=== PATIENT | female | born 1995 ===

== ENCOUNTER 2019-05-18 20:05 | Inpatient (IN) | payer MEDICAID, OTHER ==
[2019-05-18] MEDS ORDERED: ePHEDrine SULFATE 50 MG/1 ML INJ IV PRN (20:39)
[2019-05-18] MEDS ORDERED: DINOPROSTONE 10 MG VAG SUPP VG ONE (20:39)
[2019-05-18] MEDS ORDERED: ONDANSETRON 4 MG/2 ML INJ IV PRN (20:39)
[2019-05-18] MEDS ORDERED: TERBUTALINE 1 MG/1 ML INJ IVP PRN (20:39)
[2019-05-18] MEDS ORDERED: LIDOCAINE (2%) 20 MG/1 ML VIAL 20 ML MDV INFILTRATI ONE (20:39)
[2019-05-18] MEDS ORDERED: NALOXONE 0.4 MG/1 ML INJ IV PRN (20:39)
[2019-05-18] MEDS ORDERED: MINERAL OIL 30 ML ORAL LIQD PO PRN (20:39)
[2019-05-18] MEDS ORDERED: AMPICILLIN/NS 2 GM/100 ML 2 GM/100 ML BAG IV ONE (20:39)
[2019-05-18] MEDS ORDERED: TERBUTALINE 1 MG/1 ML INJ SUB-Q PRN (20:39)
[2019-05-18] MEDS ORDERED: LACTATED RINGERS 1,000 ML IV SCH (21:00)
[2019-05-18] MEDS ORDERED: OXYTOCIN 20 UNIT/1000ML DRIP 20 UNITS/1,000 ML BAG IV SCH (21:00)
[2019-05-18 21:59] LABS: Hematocrit 37.4 % (30.3-42.9); Hemoglobin 12.6 gm/dl (10.1-14.3); Mean Corpuscular HGB Conc 34 % (30-34); Mean Corpuscular Volume 91 fl (79-97); Platelet Count 236 K/mm3 (140-440); Red Blood Count 4.09 M/mm3 (3.65-5.03); Red Cell Distribution Width 14.7 % (13.2-15.2)
--- NOTE | 2019-05-19 | Ultrasound Report ---
ULTRASOUND OBSTETRIC ULTRASOUND BIOPHYSICAL PROFILE INDICATION / CLINICAL INFORMATION: well being. Clinical gestational age of 38 weeks, 2 days. COMPARISON: None available. FINDINGS: BREATHING MOVEMENT = 2 GROSS BODY MOVEMENT = 2 TONE = 2 QUALITATIVE AMNIOTIC FLUID VOLUME = 2 TOTAL BIOPHYSICAL SCORE = 8/8 Biparietal Diameter = 8.4 cm = 34 weeks, 0 day(s). Head Circumference = 30.7 cm = 34 weeks, 1 day(s). Abdominal Circumference = 33.5 cm = 37 weeks, 3 day(s). Femur Length = 6.5 cm = 33 weeks, 2 day(s). Average Ultrasound Age (AUA) = 34 weeks, 5 day(s). Heart Rate: 156 beats per minute. Estimated Weight in grams (if calculated): 2734 Position: cephalic. Cervix: closed. Length in cm (if measured): 4.5 Placenta: maternal left/fundal and free of the os. Amniotic Fluid Volume: normal Amniotic Fluid Index (MACK) in cm (if calculated): 9.4. Maternal Adnexa: No significant abnormality. IMPRESSION: 1. Biophysical Score = 8/8 2. Estimated gestational age of 34 weeks, 5 days by measurements. 3. No acute sonographic abnormality. Signer Name: John Lyon MD Signed: 05/18/2019 11:55 PM Workstation Name: [email or web address]
[2019-05-19] MEDS ORDERED: OXYTOCIN DRIP 30,000 MILLIUNITS/500 ML BAG IV ONE (09:25)
--- NOTE | 2019-05-19 10:30 | History and Physical Report ---
History of Present Illness Date of examination: 05/19/19 Date of admission: 05/18/19 20:05 Chief complaint: Presents for a scheduled induction of labor due to IUGR History of present illness: Late entry to care at 16 weeks at [facility], course complicated by Hyperemsis and weight loss; IUGR @ 38 weeks; Co-managed with [facility]; in the 9%. [facility] recommends induction of labor. Past History Past Medical History: no pertinent history Past Surgical History: no surgical history Family/Genetic History: none Social history: no significant social history, single - Obstetrical History Expected Date of Delivery: 05/30/19 Actual Gestation: 38 Week(s) 3 Day(s) : 2 Para: 1 Hx # Term Pregnancies: 1 Number of Living Children: 1 #1 Infant Gender: Female year: 2[age][birth year] Birthweight: 2.268 kg Method of Delivery: Vaginal Gestational age at delivery: 40 Complications: none Medications and Allergies Allergies Allergy/AdvReac Type Severity Reaction Status Date / Time No Known Allergies Allergy Verified 05/18/19 20:48 Home Medications Medication Instructions Recorded Confirmed Last Taken Type Iron 1 tab PO DAILY 05/18/19 05/18/19 Unknown History Vitamin 1 tab PO DAILY 05/18/19 05/18/19 Unknown History Active Meds: Active Medications Butorphanol Tartrate (Stadol) 2 mg IV Q2H PRN PRN Reason: Pain , Severe (7-10) Ephedrine Sulfate (Ephedrine Sulfate) 10 mg IV Q2M PRN PRN Reason: Hypotension Oxytocin/Sodium Chloride (Pitocin/Ns 20 Unit/1000ml Drip) 20 units in 1,000 mls @ 125 mls/hr IV DIRECT SHIRA Lactated Ringer's (Lactated Ringers) 1,000 mls @ 125 mls/hr IV DIRECT SHIRA Last Admin: 05/19/19 09:31 Dose: 125 mls/hr Documented by: Ampicillin Sodium (Ampicillin/Ns 1 Gm/50 Ml) 1 gm in 50 mls @ 100 mls/hr IV Q4HR SHIRA; Protocol Mineral Oil (Mineral Oil) 30 ml PO QHS PRN PRN Reason: Constipation Naloxone HCl (Naloxone) 0.1 mg IV Q2MIN PRN PRN Reason: Res Rate </= 8 or 02 SAT < 92% Ondansetron HCl (Zofran) 4 mg IV Q8H PRN PRN Reason: Nausea And Vomiting Terbutaline Sulfate (Brethine) 0.25 mg SUB-Q ONCE PRN PRN Reason: Hyperstimulation/Hypertonicity Terbutaline Sulfate (Brethine) 0.25 mg IVP ONCE PRN PRN Reason: Hyperstimulation/Hypertonicity Review of Systems All systems: negative - Vital Signs Vital signs: Vital Signs Temp Resp 98.8 F 14 05/18/19 20:30 05/18/19 20:30 Temp Pulse Resp BP Pulse Ox 98.7 F 71 16 94/57 05/19/19 07:51 05/19/19 09:25 05/19/19 00:08 05/19/19 09:25 - Physical Exam Breasts: Positive: normal Cardiovascular: Regular rate Lungs: Positive: Clear to auscultation, Normal air movement Abdomen: Positive: normal appearance, soft, normal bowel sounds Genitourinary (Female): Positive: normal external genitalia, normal perenium Vagina: Positive: normal moisture Uterus: Positive: enlarged Anus/Rectum: Positive: normal perianal skin Extremities: Positive: normal - Obstetrical FHR: category 1 Uterine Contraction Monitor Mode: External Cervical Dilatation: 1 (Vtx, Intact) Cervical Effacement Percentage: 60 station: -2 Uterine Contraction Pattern: Irregular Uterine Tone Measurement Phase: Resting Uterine Contraction Intensity: Mild Results Result Diagrams: 05/18/19 20:45 All other labs normal. Assessment and Plan A: IUP @ 38 3/7 Weeks Category I Tracing IUGR GBS Positive P: Admit to L&D Per Routine Orders Cook's Cervical Ripening Balloon Placed Low-Dose Pitocin Induction GBS Prophylaxis
[2019-05-19] MEDS: AMPICILLIN/NS 1 GM/50 ML 1 GM/50 ML BAG IV SCH ×4 (10:36→22:41)
[2019-05-19] MEDS ORDERED: OXYTOCIN DRIP 30 UNITS/500 ML BAG IV SCH (11:00)
[2019-05-19] MEDS: BUTORPHANOL 2 MG/1 ML INJ IV PRN ×3 (11:58→21:14)
--- NOTE | 2019-05-19 20:46 | Progress Note ---
Assessment and Plan A: Term IUP 38w3d IUGR Category 1 tracing Cooks catheter removed; AROM 18:25 Lg amt clear fluid Pitocin 2mu Contractions 2-4min P: Routine labor orders Pitocin Augmentation May have IV pain med/epidural PRN Anticipate Subjective - Subjective Date of service: 05/19/19 (18:25) Principal diagnosis: Term IUP, IOL Interval history: See H&P Patient reports: movement normal, contractions Objective - Vital Signs Vital Signs: Vital Signs - 12hr 05/19/19 05/19/19 05/19/19 09:25 11:46 13:02 Temperature Pulse Rate 71 79 76 Respiratory Rate Blood Pressure 94/57 109/66 99/60 Blood Pressure [Left] 05/19/19 05/19/19 05/19/19 13:04 13:32 14:04 Temperature 97.5 F L Pulse Rate 76 73 82 Respiratory 14 Rate Blood Pressure 97/60 106/73 Blood Pressure 99/60 [Left] 05/19/19 05/19/19 05/19/19 14:34 15:02 15:34 Temperature Pulse Rate 84 77 87 Respiratory Rate Blood Pressure 85/53 112/70 111/75 Blood Pressure [Left] 05/19/19 05/19/19 05/19/19 16:04 16:34 17:02 Temperature Pulse Rate 82 73 96 H Respiratory Rate Blood Pressure 113/69 104/62 99/59 Blood Pressure [Left] 05/19/19 05/19/19 05/19/19 17:26 17:34 18:03 Temperature 98.7 F Pulse Rate 70 78 Respiratory 16 Rate Blood Pressure 99/57 116/68 Blood Pressure [Left] 05/19/19 05/19/19 05/19/19 18:32 19:03 19:33 Temperature Pulse Rate 83 68 76 Respiratory Rate Blood Pressure 101/73 100/68 98/62 Blood Pressure [Left] 05/19/19 05/19/19 20:02 20:33 Temperature Pulse Rate 66 82 Respiratory Rate Blood Pressure 103/67 138/73 Blood Pressure [Left] - Exam Breasts: normal Cardiovascular: Regular rate, Normal S1, Normal S2, No murmurs Lungs: Clear to auscultation, Normal air movement Abdomen: Present: normal appearance, soft, normal bowel sounds. Absent: distention Vulva: both: normal (Cooks catheter removed with gentle traction. ) Uterus: Present: other (Gravid) FHR: category 1 Uterine Contraction Monitor Mode: External Cervical Dilatation: 4 (18:25 AROM, Lg amt clear fluid) Cervical Effacement Percentage: 70 station: -2 Uterine Contraction Pattern: Regular Uterine Tone Measurement Phase: Resting Uterine Contraction Intensity: Moderate Extremities: normal Deep Tendon Reflex Grade: Normal +2 - Labs Labs: Laboratory Results - last 24 hr 05/18/19 05/18/19 20:45 20:45 WBC 9.2 RBC 4.09 Hgb 12.6 Hct 37.4 MCV 91 MCH 31 MCHC 34 RDW 14.7 Plt Count 236 Blood Type A POSITIVE Antibody Screen Negative
[2019-05-19] MEDS ORDERED: SODIUM CHLORIDE 0.9% 1000 ML 1,000 ML ONE (21:58)
--- NOTE | 2019-05-19 22:04 | Event Note ---
Date: 05/19/19 A: Category 2 tracing (Variables; early decels) SVE 80/-2 P: IUPC placed in gentle fashion [facility] Infusion
--- NOTE | 2019-05-19 23:09 | Procedure Note ---
OB Delivery Note - Delivery Date of Delivery: 05/19/19 (22:52) Surgeon: DYLAN SALDIVAR (PJ) Estimated blood loss: 100cc - Vaginal Delivery presentation: vertex Delivery position: OA Intrapartum events: none Delivery induction: cervidil Delivery augmentation: rupture of membranes, pitocin Delivery monitor: external FHT, external uterine, internal uterine Route of delivery: (22:52) Delivery placenta: spontaneous (22:55) Delivery cord: 3 umbilical vessels Episiotomy: none Delivery laceration: none Anesthesia: intravenous Delivery comments: Arrived to room following nurse delivery of viable female infant. Nurse drying and stimulating vigorous . Short cord noted. Cord clamped and to for assessment. Cord blood collected per hospital protocol. Spontaneous damon delivery of intact placenta at 22:55. FF@U-2. Bleeding small. No tears or lacerations noted. EBL 100cc. and mother left in stable condition in L&D. - A at 1 minute: 8 at 5 minutes: 9 Infant Gender: Female (2472 grams, 5lbs 7.1oz, 18")
[2019-05-19] MEDS ORDERED: WITCH HAZEL/ GLYCERIN PAD TP PRN (23:10)
[2019-05-19] MEDS ORDERED: LANOLIN/ZINC/DIMETHICONE (LANSINOH) 7 GM TP PRN (23:10)
[2019-05-19] MEDS ORDERED: ONDANSETRON 4 MG/2 ML INJ IV PRN (23:10)
[2019-05-19] MEDS ORDERED: ACETAMINOPHEN 325 MG TAB PO PRN (23:10)
[2019-05-19] MEDS ORDERED: PROMETHAZINE 25 MG TAB PO PRN (23:10)
[2019-05-19] MEDS ORDERED: MAGNESIUM HYDROXIDE (MOM) ORAL LIQD UDC PO PRN (23:10)
[2019-05-19] MEDS ORDERED: diphenhydrAMINE 25 MG CAP PO PRN (23:10)
[2019-05-20] MEDS: IBUPROFEN 600 MG TAB PO SCH ×3 (05:14→18:31)
--- NOTE | 2019-05-20 08:44 | Progress Note ---
Assessment and Plan A:PPD#1 s/p Bottlefeeding Stable P: Routine PP orders Anticipate discharge home in 24-48 hours Subjective - Subjective Date of service: 05/20/19 Principal diagnosis: PPD#1 s/p Interval history: See H&P and delivery note Patient reports: appetite normal, voiding normally, pain well controlled, ambulating normally : doing well, bottle feeding Objective - Vital Signs Latest vital signs: Vital Signs Temp Pulse Resp BP BP Pulse Ox 05/20/19 05:30 98.3 F 98 H 18 95/57 96 05/20/19 05:14 18 05/20/19 00:11 81 103/71 05/19/19 23:56 100 H 111/75 05/19/19 23:41 76 103/64 05/19/19 23:26 88 109/72 05/19/19 23:11 102 H 106/67 05/19/19 22:59 100 H 102/63 05/19/19 22:57 93 H 99/68 05/19/19 22:34 67 106/68 05/19/19 22:03 63 89/55 05/19/19 21:32 64 112/72 05/19/19 21:14 18 05/19/19 21:03 109 H 139/98 05/19/19 20:33 82 138/73 05/19/19 20:02 66 103/67 05/19/19 19:33 76 98/62 05/19/19 19:03 68 100/68 05/19/19 18:32 83 101/73 05/19/19 18:03 78 116/68 05/19/19 17:34 70 99/57 05/19/19 17:26 98.7 F 16 05/19/19 17:02 96 H 99/59 05/19/19 16:34 73 104/62 05/19/19 16:04 82 113/69 05/19/19 15:34 87 111/75 05/19/19 15:02 77 112/70 05/19/19 14:34 84 85/53 05/19/19 14:04 82 106/73 05/19/19 13:32 73 97/60 05/19/19 13:04 97.5 F L 76 14 99/60 05/19/19 13:02 76 99/60 05/19/19 11:46 79 109/66 05/19/19 09:25 71 94/57 Intake and Output 05/19/19 05/20/19 05/20/19 23:59 07:59 15:59 Intake Total 51 Output Total 1500 900 Balance -1449 -900 Intake: IV 51 AMPICILLIN/NS 1 GM/50 ML 50 1 gm In 50 ml @ 100 mls/ hr IV Q4HR SHIRA Rx#: [id number] PITOCin/NS 30 UNIT/500ML 1 30 units In 500 ml @ 2 mls/hr IV TITR SHIRA Rx#: [id number] Output: Urine 1500 900 Indwelling Catheter 1500 900 Other: Total, Output Amount 1500 900 Estimated Blood Loss 100 - Exam Breasts: Present: normal Cardiovascular: Present: Regular rate, Normal S1, Normal S2, No murmurs Lungs: Present: Clear to auscultation, Normal air movement Abdomen: Present: normal appearance, soft, normal bowel sounds. Absent: distention Vulva: both: normal Uterus: Present: firm, fundal height below umbilicus (-1) Extremities: Present: normal Deep Tendon Reflex Grade: Normal +2
[2019-05-20 11:28] LABS: Hematocrit 31.6 % (30.3-42.9); Hemoglobin 10.7 gm/dl (10.1-14.3)
[2019-05-20] MEDS: HYDROcodone/ACETAMINOPHEN 5-325 MG TAB PO PRN (15:22)
[2019-05-21] MEDS: IBUPROFEN 600 MG TAB PO SCH ×4 (00:03→18:34)
[2019-05-21] MEDS: HYDROcodone/ACETAMINOPHEN 5-325 MG TAB PO PRN ×2 (03:31→12:06)
--- NOTE | 2019-05-21 15:05 | Progress Note ---
Assessment and Plan A: /postop day 2 S/P . Anemia. P: Discharge patient home today. Discussed discharge instructions and warning signs with patient. Advised patient to continue taking vitamin and iron supplements at home. Advised patient to avoid intercourse, lifting and heavy housework. Advised patient to follow up at [facility] in 6 weeks; advised patient to call the clinic to obtain an appointment. Patient voiced understanding of instructions. Subjective - Subjective Date of service: 05/21/19 Principal diagnosis: PPD#2 s/p Interval history: day 2 S/P . Patient desires discharge today. Patient reports small amount of lochia. Patient is voiding without difficulty, ambulating well, tolerating a regular diet without nausea or vomiting. Patient denies headache, chest pain, cough, shortness of breath, dizziness, leg pain, heavy bleeding, or abdominal pain. Patient reports: appetite normal, voiding normally, flatus, ambulating normally, no dizzy ambulation, no nauseated : doing well Objective - Vital Signs Latest vital signs: Vital Signs Temp Pulse Resp BP BP Pulse Ox 05/21/19 14:37 70 18 100/65 100 05/21/19 12:24 98.7 F 86 20 98/53 97 05/21/19 12:06 20 05/21/19 08:48 18 05/21/19 07:31 98.7 F 59 L 16 101/61 99 05/21/19 04:31 20 05/20/19 23:56 97.9 F 93 H 18 113/67 98 05/20/19 17:08 98.4 F 84 20 91/53 Intake and Output 05/20/19 05/21/19 05/21/19 23:59 07:59 15:59 Intake Total 680 120 480 Balance 680 120 480 Intake: Oral 680 120 480 Other: Total, Intake Amount 240 120 240 # Voids Void 1 1 - Exam Cardiovascular: Present: Regular rate, Normal S1, Normal S2 Lungs: Present: Clear to auscultation Abdomen: Present: normal appearance, soft. Absent: distention, tenderness, guarding, rigidity Uterus: Present: normal, firm, fundal height below umbilicus. Absent: bogginess, tenderness Extremities: Present: normal. Absent: tenderness, edema
--- NOTE | 2019-05-21 15:13 | Discharge Summary ---
Providers - Providers Date of Admission: 05/18/19 20:05 Date of discharge: 05/21/19 Attending physician: CYNTHIA ARCOS Primary care physician: CYNTHIA ARCOS Hospitalization Reason for admission: induction of labor Delivery: Episiotomy: none Other procedures: none complications: none Discharge diagnosis: IUP at term delivered [place] baby: female Pertinent studies: Labs Hospital course: Normal hospital course Condition at discharge: Good Disposition: DC-01 TO HOME OR SELFCARE - Discharge Diagnoses (1) Term delivered Status: Acute Plan - Provider Discharge Summary Activity: routine, no sex for 6 weeks, no heavy lifting 4 weeks, no strenuous exercise Diet: routine Instructions: routine Additional instructions: Continue taking your vitamins and iron supplements at home. Call your doctor immediately for: * Fever > 100.5 * Heavy vaginal bleeding ( >1 pad per hour) * Severe persistent headache * Shortness of breath * Reddened, hot, painful area to leg or breast - Follow up plan Follow up: CYNTHIA ARCOS MD [Primary Care Provider] - 6 Weeks
[2019-05-21 16:31] VITALS: BP 104/68
== END 2019-05-21 17:55 | disposition home or self-care (01) | DRG 807 ==
LOC: LD 20:05 → OB 05-20 00:39
PROVIDERS: ADMIT Obstetrics & Gynecology; ATTEND Obstetrics & Gynecology
PROC: 10E0XZZ Delivery of Products of Conception, External Approach (ICD-10-PCS; principal; 2019-05-19)
PROC: 10H07YZ Insertion of Other Device into Products of Conception, Via Natural or Artificial Opening (ICD-10-PCS; 2019-05-19)
PROC: 3E0P7VZ Introduction of Hormone into Female Reproductive, Via Natural or Artificial Opening (ICD-10-PCS; 2019-05-19)
PROC: 3E0E7KZ Introduction of Other Diagnostic Substance into Products of Conception, Via Natural or Artificial Opening (ICD-10-PCS; 2019-05-19)
PROC: 10907ZC Drainage of Amniotic Fluid, Therapeutic from Products of Conception, Via Natural or Artificial Opening (ICD-10-PCS; 2019-05-19)
PROC: 0U7C7ZZ Dilation of Cervix, Via Natural or Artificial Opening (ICD-10-PCS; 2019-05-19)
DX: O36.5930 Maternal care for other known or suspected poor fetal growth, third trimester, not applicable or unspecified (principal); Z37.0 Single live birth; O69.3XX0 Labor and delivery complicated by short cord, not applicable or unspecified; O99.824 Streptococcus B carrier state complicating childbirth; O99.02 Anemia complicating childbirth; Z3A.38 38 weeks gestation of pregnancy; Z37.9 Outcome of delivery, unspecified
CPT/HCPCS: 36415; 59200; 76816; 76819; 85014; 85018; 85027; 86850; 86900; 86901; G0378; J0290; J0595; J2590; J7030; J7120